=== PATIENT | male | born 1995 | race Asian ===

== ENCOUNTER 2018-08-16 16:43 | Emergency (ER) | payer OTHER ==
[~2018-08-16] VITALS: Ht 188 cm; Wt 104.0 kg
[~2018-08-16 16:43] MED LIST: NO CURRENT MEDS
[2018-08-16 19:30] LABS: APPEARANCE,URINE CLEAR (CLEAR); BILIRUBIN,URINE NEGATIVE (NEGATIVE); GLUCOSE, URINE (UA) NEGATIVE (NEGATIVE); KETONES,URINE TRACE mg/dL (NEGATIVE); LEUKOCYTE ESTERASE ,URINE MODERATE (NEGATIVE); NITRATE,URINE NEGATIVE (NEGATIVE); OCCULT BLOOD,URINE NEGATIVE (NEGATIVE); PROTEIN,URINE NEGATIVE (NEGATIVE)
[2018-08-16 19:59] LABS: RBC,URINE None Seen /HPF (0-2)
[2018-08-16 20:00] LABS: BACTERIA,URINE Few /HPF (None Seen); SQUAMOUS EPITHELIAL CELL,UR Few /LPF (None Seen)
[2018-08-16] MEDS: CefTRIAXone SODIUM 1 GM/VIAL IM ONE (20:42)
[2018-08-16] MEDS: LIDOCAINE/PF 1% 5 ML VIAL INJ ONE (20:58)
[2018-08-16] MEDS: DOXYCYCLINE HYCLATE 100 MG CAPSULE PO ONE (20:58)
[2018-08-16 21:05] VITALS: BP 148/80
== END 2018-08-16 21:05 | disposition home or self-care (01) ==
LOC: EMS 16:44
DX: N45.1 Epididymitis (principal); N50.89 Other specified disorders of the male genital organs; F41.9 Anxiety disorder, unspecified; F17.210 Nicotine dependence, cigarettes, uncomplicated
CPT/HCPCS: 76870; 81001; 87086; 96372; 99284; J0696; J3490

== ENCOUNTER 2019-04-07 10:35 | Emergency (ER) | payer MEDICAID, OTHER ==
[~2019-04-07] VITALS: Ht 190.5 cm; Wt 111.4 kg
[2019-04-07] MEDS ORDERED: AMOX TR/POT CLAV 500 MG/125 MG TABLET PO ONE (11:30)
[2019-04-07] MEDS ORDERED: KETOROLAC TROMETHAMINE 30 MG/ML VIAL IM ONE (11:30)
[2019-04-07 13:14] VITALS: BP 143/89
== END 2019-04-07 13:44 | disposition home or self-care (01) ==
LOC: EMS 10:35
DX: K08.89 Other specified disorders of teeth and supporting structures (principal); F17.210 Nicotine dependence, cigarettes, uncomplicated; F41.9 Anxiety disorder, unspecified
CPT/HCPCS: 96372; 99283; 99406; J1885